=== PATIENT | female | born 1955 | race Caucasian/White ===

== ENCOUNTER 2016-05-18 19:54 | Emergency (ER) | payer BC ==
[2016-05-18 20:07] VITALS: BP 146/67
--- NOTE | 2016-05-18 20:17 | UC ---
Cardiac HPI - History of Current Complaint Stated Complaint: LEFT SIDE,RIB PAIN/INJURY Time Seen by Provider: 05/18/16 20:05 Onset/Duration: Sudden Onset - fell playing tennis, rushing the net, Lasting Days - 2, Still Present Initial Severity: Moderate Current Severity: Moderate Chest Pain Location: Left Anterior - under the breast where she fell. Character: Sharp/Stabbing Aggravating: Movement, Deep Breaths Alleviating: Rest, Position Associated Signs & Symptoms: Positive: Chest Pain. Negative: Anxiety, Numbness , Tingling, Diaphoresis, Palpitations, Cough, Hemoptysis - Risk Factors Pulmonary Embolism Risk Factors: Negative Cardiac Risk Factors: Negative Atrial Fibrillation: Negative TAD Risk Factors: Negative - Allergy/Home Medications Allergies/Adverse Reactions: Allergies Allergy/AdvReac Type Severity Reaction Status Date / Time No Known Allergies Allergy Verified 05/18/16 19:59 PMH/Surg Hx/FS Hx/Imm Hx Endocrine History Of: Denies: Diabetes Cardiovascular History Of: Denies: Hypertension, Pacemaker/ICD Respiratory History Of: Denies: Asthma GI/ History Of: Denies: Renal Disease - Surgical History Surgical History: Yes Surgery Procedure, Year, and Place: Right Shoulder Surgeries. Right knee arthroscopies. right total knee replacement 2004 - Family History Known Family History: Positive: Unknown - Adopted - Social History Occupation: Retired Lives: Alone - with a friend Alcohol Use: None Substance Use Type: None Smoking Status (MU): Former Smoker Type: Cigarettes Amount Used/How Often: 1 - 1 1/2 PPD Length of Time of Smoking/Using Tobacco: 6 Years Have You Smoked in the Last Year: No When Did the Patient Quit Smoking/Using Tobacco: ~1991 - Immunization History Most Recent Influenza Vaccination: Not the Season Review of Systems Cardiovascular: Chest Pain Musculoskeletal: Arthralgia - left shoulder and left hip. All Other Systems Reviewed And Are Negative: Yes Physical Exam Triage Information Reviewed: Yes Appearance: Well-Appearing, No Pain Distress, Well-Nourished, Pain Distress - only with movement or deep breathing Vital Signs: Initial Vital Signs Temp 100.3 F 05/18/16 19:59 Pulse 85 05/18/16 19:59 Resp 16 05/18/16 19:59 BP 146/67 05/18/16 19:59 Pulse Ox 98 05/18/16 19:59 Vital Signs Reviewed: Yes Eyes: Positive: Conjunctiva Clear Neck exam: Normal Respiratory: Positive: Lungs clear, Other: - Tenderness left anterior ribs Cardiovascular Exam: Normal Musculoskeletal: Positive: Strength Intact - left shoulder and left hip, ROM Intact - left shoulder and left hip. Neurological Exam: Normal Psychological Exam: Normal Skin Exam: Normal - Differential Diagnoses - Chest Pain Differential Diagnosis/HQI/PQRI: Chest Wall - contusion, Pulmonary Embolism, Other: - Rib fracture - Clinical Impression Provider Diagnoses: Non-displaced rib fractures, left 6th, 7th Discharge - Discharge Plan Condition: Stable Disposition: HOME Prescriptions: Ketorolac TAB (NF) [Toradol TAB (NF)] 10 mg PO Q6H PRN #20 tab PRN Reason: Pain - Chest Patient Education Materials: Rib Fracture (ED), Ketorolac (By injection), Ketorolac (By mouth)
[2016-05-18] MEDS ORDERED: Ketorolac INJ* 60 MG/2 ML VIAL IM ONE (20:19)
--- NOTE | 2016-05-18 20:52 | RAD ---
INDICATION: Rib pain none COMPARISON: None TECHNIQUE: Multiple views of the ribs were obtained. FINDINGS: Bones: There are findings suspicious for nondisplaced lateral left sixth and seventh rib fractures. LUNGS: The lungs are clear. There is no pneumothorax. Pleural spaces: There is no evidence of hemothorax. Other: None IMPRESSION: SUSPECT NONDISPLACED FRACTURES OF THE LATERAL SIXTH AND SEVENTH RIBS.
== END 2016-05-18 21:25 | disposition home or self-care (01) ==
LOC: UCCORT 19:54
DX: S29.9XXA Unspecified injury of thorax, initial encounter (principal); W19.XXXA Unspecified fall, initial encounter; Y93.73 Activity, racquet and hand sports; Y92.312 Tennis court as the place of occurrence of the external cause; R07.81 Pleurodynia; M25.552 Pain in left hip; M25.512 Pain in left shoulder; Z87.891 Personal history of nicotine dependence
CPT/HCPCS: 96372; 99212; G0463; J1885